=== PATIENT | male | born 1965 | race Caucasian/White ===

== ENCOUNTER 2016-09-17 08:12 | Day surgery (SDC) | payer MEDICAID ==
[~2016-09-17] VITALS: Ht 188 cm; Wt 88.0 kg
[~2016-09-17 08:12] MED LIST: IODIXANOL 320MG/ML 100ML BTL IV ONE; LIDOCAINE 2%HCL (LOCAL ANESTH.) INJ 20ML MDV ONE
[2016-09-17] MEDS ORDERED: ANGIOMAX 250 MG VIAL IV ONE (09:45)
[2016-09-17] MEDS ORDERED: VERAPAMIL 2.5MG/ML INJ 2ML VIAL IV ONE (09:46)
[2016-09-17] MEDS ORDERED: MIDAZOLAM HCL 1MG/1ML-2 ML VIAL ONE (09:46)
[2016-09-17] MEDS ORDERED: SODIUM CHL 0.9% 0 ML ONE (09:46)
[2016-09-17] MEDS ORDERED: fentaNYL CITRATE 100 MCG/2 ML VL ONE (09:46)
[2016-09-17] MEDS ORDERED: HYDROcodone-ACET 10/325MG TAB PO ONE (12:00)
[2016-10-03] MEDS ORDERED: CAR3125T OR (12:37)
[2016-10-03] MEDS ORDERED: LISI-646 PO (12:37)
[2016-10-03] MEDS ORDERED: BUPR1TAB11 PO (12:37)
[2016-10-03] MEDS ORDERED: OMEP20TA85 PO (12:37)
[2016-10-03] MEDS ORDERED: NIC21P TOP (12:37)
[2016-10-03] MEDS ORDERED: IPR002IS HHN (12:37)
[2016-10-03] MEDS ORDERED: LORA-622 PO (12:37)
[2016-10-03] MEDS ORDERED: GABA-339 PO (12:37)
[2016-10-03] MEDS ORDERED: PRE5T PO (12:37)
[2016-10-03] MEDS ORDERED: ALBU18 IN (12:37)
[2016-10-03] MEDS ORDERED: UMEC1INH IN (12:37)
[2016-10-03] MEDS ORDERED: CYCL1TAB18 PO (12:37)
== END 2016-09-17 14:25 | disposition home or self-care (01) ==
LOC: CATH 08:12
PROVIDERS: ATTEND Internal Medicine
DX: I21.4 Non-ST elevation (NSTEMI) myocardial infarction (principal)
CPT/HCPCS: 93458; C1760; C1769; C1894; J1644; J3010; J7030; 99152; J2250; Q9967

== ENCOUNTER 2016-10-02 14:39 | Inpatient (IN) | payer MEDICAID ==
[~2016-10-02] VITALS: Ht 188 cm; Wt 86.2 kg
[2016-10-02] MEDS ORDERED: IPRATROPIUM BROM 0.5 MG/2.5ML INH SOL NEB ONE (15:15)
[2016-10-02] MEDS ORDERED: methylPREDNISolone SOD SUCC 125 MG/2 ML VL IV ONE ×2 (15:15→22:15)
[2016-10-02] MEDS ORDERED: ALBUTEROL SULF 2.5 MG/0.5ML(0.5%) NEB SOLN NEB ONE (15:15)
[2016-10-02 15:18] LABS: Basophils # (auto) 0.1 uL; Basophils % (auto) 1.1 % (0.0-2.0); CONDITION Y; Eosinophils # (auto) 0.2 uL; Hematocrit 41.6 % (41.0-53.0); Hemoglobin 13.5 g/dL (13.5-17.5); Lymphocytes # (auto) 1.8 uL; Lymphocytes % (auto) 15.8 % (10.0-50.0); Mean Corpuscular Hemoglobin 29.3 pg (28.0-32.0); Mean Corpuscular Hgb Conc. 32.5 g/dL (32.0-36.0); Mean Corpuscular Volume 90.3 fL (80.0-100.0); Mean Platelet Volume 7.7 fL (7.4-10.4); Monocytes # (auto) 0.8 uL; Monocytes % (auto) 7.1 % (0.0-12.0); Neutrophils # (auto) 8.5 uL; Platelet Count (auto) 372 10^3/uL (140-450); Red Cell Distribution Width 16.3 % (11.6-16.0); White Blood Cell 11.5 10^3/uL (4.4-10.8)
[2016-10-02 15:47] LABS: BUN/Creatinine Ratio 22.3; Bilirubin, Total 0.3 mg/dL (0.2-1.0); Calcium 7.8 mg/dL (8.5-10.1); Magnesium 2.5 mg/dL (1.6-2.6); Potassium 4.2 mmol/L (3.5-5.1); Total Protein 6.6 g/dL (6.4-8.2)
[2016-10-02 15:49] LABS: B-Type Natriuretic Peptide 11.18 pg/mL (0-100)
[2016-10-02 16:03] LABS: Temperature: 23.1 C (20.0-25.0)
[2016-10-02] MEDS ORDERED: LIDOCAINE 2%HCL (LOCAL ANESTH.) INJ 20ML MDV ONE (16:23)
[2016-10-02] MEDS ORDERED: TEMAZEPAM 15 MG CAP PO PRN (18:15)
[2016-10-02] MEDS ORDERED: ONDANSETRON HCL 4 MG/2 ML VIAL IV PRN (18:15)
[2016-10-02] MEDS ORDERED: ACETAMINOPHEN 325 MG TAB PO PRN (18:15)
[2016-10-02] MEDS ORDERED: DOCUSATE SOD 100 MG CAP PO PRN (18:15)
[2016-10-02] MEDS ORDERED: NITROGLYCERIN 0.4 MG SL TAB SL PRN (18:15)
[2016-10-02] MEDS ORDERED: ONDANSETRON HCL 4 MG/2 ML VIAL IV ONE (19:30)
[2016-10-02] MEDS ORDERED: HYDROmorphone HCL 2 MG/ML VL IV ONE (19:30)
[2016-10-02 20:16] LABS: INR 0.92 (0.9-1.15); Partial Thromboplastin Time 28.5 sec (22.64-33.71)
[2016-10-02] MEDS ORDERED: ETOMIDATE (2MG/ML) 20ML VIAL IV ONE (20:30)
[2016-10-02] MEDS ORDERED: IPRATROPIUM BROM 0.5 MG/2.5ML INH SOL ONE (21:04)
[2016-10-02] MEDS ORDERED: ALBUTEROL SULF 2.5 MG/0.5ML(0.5%) NEB SOLN ONE ×2 (21:04→21:50)
[2016-10-02] MEDS ORDERED: PROPOFOL 100 ML IV ONE (21:11)
[2016-10-02] MEDS ORDERED: SUCCINYLCHOLINE CHLORIDE 20 MG/ML 10ML VIAL IV ONE (21:12)
[2016-10-02] MEDS ORDERED: cefTRIAXone 1GM/50ML D5W 50 ML IV ONE (21:30)
[2016-10-02] MEDS: PROPOFOL 100 ML IV SCH (21:37)
[2016-10-02 21:55] LABS: Allen Test Yes; Base Excess -7.5 mmol/L (-2.0-2.0); Blood 02Sat 90.4 % (96-100); Blood COHb 0.7 % (0.5-1.5); Blood MetHb 0.5 % (0.0-1.5); HCO3 24.6 mmol/L (22-26.0); HHb 9.5 % (0.0-5.0); MODE VENT - PCV; O2Hb 89.3 % (94.0-97.0); PIP 25; PO2 82.6 mmHg (80.0-100.0); PO2(T) 82.6 mmHg (80.0-100.0); Room 1010-ERT; Sample Type Arterial; pH 7.085 (7.350-7.450)
[2016-10-02 22:10] VITALS: BP 78/54
[2016-10-02] MEDS ORDERED: MIDAZOLAM DRIP 100 mg/100mL NS 100 ML IV ONE (22:39)
[2016-10-02] MEDS: MIDAZOLAM DRIP 100 mg/100mL NS 100 ML IV SCH (23:04)
[2016-10-03] VITALS (17 sets, daily range): BP systolic 90–124; BP diastolic 46–80
[2016-10-03] MEDS ORDERED: SUCCINYLCHOLINE CHLORIDE 20 MG/ML 10ML VIAL IV ONE
[2016-10-03 00:59] LABS: Allen Test Yes; Base Excess -1.2 mmol/L (-2.0-2.0); Blood 02Sat 95.6 % (96-100); Blood COHb 0.7 % (0.5-1.5); Blood MetHb 0.4 % (0.0-1.5); HCO3 27.2 mmol/L (22-26.0); HHb 4.4 % (0.0-5.0); MODE VENT - A/C; O2Hb 94.5 % (94.0-97.0); PCO2 61.7 mmHg (35.0-45.0); PCO2(T) 61.7 mmHg (35.0-45.0); Room 1010-ERT; Sample Type Arterial; pH 7.262 (7.350-7.450)
[2016-10-03] MEDS ORDERED: ALBUMIN 5% 250 ML IV ONE (02:00)
[2016-10-03 05:46] LABS: Allen Test Yes; Base Excess 0.6 mmol/L (-2.0-2.0); Blood 02Sat 89.4 % (96-100); Blood COHb 0.5 % (0.5-1.5); Blood MetHb 0.3 % (0.0-1.5); HCO3 27.3 mmol/L (22-26.0); HHb 10.5 % (0.0-5.0); MODE VENT - A/C; O2Hb 88.7 % (94.0-97.0); PCO2 51.8 mmHg (35.0-45.0); PCO2(T) 51.8 mmHg (35.0-45.0); PO2 62.2 mmHg (80.0-100.0); PO2(T) 62.2 mmHg (80.0-100.0); Room 1010-ERT; Sample Type Arterial; pH 7.339 (7.350-7.450)
[2016-10-03] MEDS: SODIUM CHLORIDE 0.9% 1,000 ML IV SCH (07:00)
[2016-10-03 09:53] LABS: Urine Bilirubin Negative (Negative); Urine Color Yellow (Yellow); Urine Glucose Normal (Normal); Urine Ketone Negative (Negative); Urine Mucus FEW (None Seen); Urine Nitrite Negative (Negative); Urine RBC 37 /hpf (0 - 3); Urine Urobilinogen Normal (Negative); Urine pH 5.5 (5.0-8.0)
[2016-10-03 09:54] LABS: Urine Blood 1+ /uL (Negative)
[2016-10-03] MEDS ORDERED: methylPREDNISolone SOD SUCC 125 MG/2 ML VL IV ONE (10:30)
[2016-10-03] MEDS: ALBUTEROL SULF 2.5 MG/0.5ML(0.5%) NEB SOLN ONE ×2 (10:39→10:49)
[2016-10-03] MEDS: IPRATROPIUM BROM 0.5 MG/2.5ML INH SOL ONE ×2 (10:39→10:48)
[2016-10-03] MEDS: IPRATROPIUM BROM 0.5 MG/2.5ML INH SOL NEB SCH ×4 (10:47→22:08)
[2016-10-03] MEDS: ALBUTEROL SULF 2.5 MG/0.5ML(0.5%) NEB SOLN NEB SCH ×4 (10:47→22:08)
[2016-10-03] MEDS: ENOXAPARIN SOD 40 MG/0.4 ML SYRINGE SC SCH (10:48)
[2016-10-03] MEDS: LEVOFLOXACIN 500MG 100 ML IV SCH (10:48)
[2016-10-03 12:04] LABS: Allen Test Modified; Base Excess 1.2 mmol/L (-2.0-2.0); Blood 02Sat 96.1 % (96-100); Blood COHb 0.3 % (0.5-1.5); Blood MetHb 0.3 % (0.0-1.5); CPAP / PEEP 0; HCO3 28.2 mmol/L (22-26.0); HHb 3.9 % (0.0-5.0); MODE VENT - A/C; O2Hb 95.5 % (94.0-97.0); PO2 95.8 mmHg (80.0-100.0); PO2(T) 95.8 mmHg (80.0-100.0); Room 1010-ERT; Sample Type Arterial; pH 7.328 (7.350-7.450)
[2016-10-03] MEDS ORDERED: NIC21P TOP ×2 (12:37)
[2016-10-03] MEDS ORDERED: UMEC1INH IN ×2 (12:37)
[2016-10-03] MEDS ORDERED: BUPR1TAB11 PO ×2 (12:37)
[2016-10-03] MEDS ORDERED: LISI-646 PO ×2 (12:37)
[2016-10-03] MEDS ORDERED: GABA-339 PO ×2 (12:37)
[2016-10-03] MEDS ORDERED: CAR3125T OR ×2 (12:37)
[2016-10-03] MEDS ORDERED: IPR002IS HHN ×2 (12:37)
[2016-10-03] MEDS ORDERED: OMEP20TA85 PO ×2 (12:37)
[2016-10-03] MEDS ORDERED: PRE5T PO ×2 (12:37)
[2016-10-03] MEDS ORDERED: LORA-622 PO ×2 (12:37)
[2016-10-03] MEDS ORDERED: CYCL1TAB18 PO ×2 (12:37)
[2016-10-03] MEDS ORDERED: ALBU18 IN ×2 (12:37)
[2016-10-03] MEDS: PROPOFOL 100 ML IV SCH (14:45)
[2016-10-03] MEDS: MIDAZOLAM DRIP 100 mg/100mL NS 100 ML IV SCH (15:34)
[2016-10-04] VITALS (106 sets, daily range): BP systolic 95–165; BP diastolic 56–123
[2016-10-04] MEDS: SODIUM CHLORIDE 0.9% 1,000 ML IV SCH ×3 (01:00→20:15)
[2016-10-04] MEDS: IPRATROPIUM BROM 0.5 MG/2.5ML INH SOL NEB SCH ×6 (01:58→22:24)
[2016-10-04] MEDS: ALBUTEROL SULF 2.5 MG/0.5ML(0.5%) NEB SOLN NEB SCH ×6 (01:58→22:24)
[2016-10-04 04:02] LABS: Basophils # (auto) 0.2 uL; CONDITION Y; Eosinophils # (auto) 0.1 uL; Eosinophils % (auto) 0.4 % (0.0-7.0); Hemoglobin 12.4 g/dL (13.5-17.5); Lymphocytes # (auto) 0.9 uL; Lymphocytes % (auto) 5.6 % (10.0-50.0); Mean Corpuscular Hemoglobin 29.9 pg (28.0-32.0); Mean Corpuscular Hgb Conc. 32.5 g/dL (32.0-36.0); Mean Corpuscular Volume 91.8 fL (80.0-100.0); Mean Platelet Volume 8.2 fL (7.4-10.4); Monocytes # (auto) 1.3 uL; Platelet Count (auto) 252 10^3/uL (140-450); Red Cell Distribution Width 16.5 % (11.6-16.0); White Blood Cell 16.5 10^3/uL (4.4-10.8)
[2016-10-04 04:19] LABS: BUN/Creatinine Ratio 34.1; Calcium 7.9 mg/dL (8.5-10.1); Magnesium 2.7 mg/dL (1.6-2.6); Potassium 4.5 mmol/L (3.5-5.1)
[2016-10-04 07:37] LABS: Allen Test Yes; Base Excess 2.6 mmol/L (-2.0-2.0); Blood COHb 0.7 % (0.5-1.5); Blood MetHb 0.2 % (0.0-1.5); CPAP / PEEP 0; HCO3 28.5 mmol/L (22-26.0); MODE VENT - A/C; O2Hb 94.1 % (94.0-97.0); PCO2 48.9 mmHg (35.0-45.0); PCO2(T) 48.9 mmHg (35.0-45.0); PIP 19; PO2 82.1 mmHg (80.0-100.0); PO2(T) 82.1 mmHg (80.0-100.0); Sample Type Arterial; pH 7.383 (7.350-7.450)
[2016-10-04] MEDS: LEVOFLOXACIN 500MG 100 ML IV SCH (09:44)
[2016-10-04] MEDS: methylPREDNISolone SOD SUCC 125 MG/2 ML VL IV SCH (09:45)
[2016-10-04] MEDS: ENOXAPARIN SOD 40 MG/0.4 ML SYRINGE SC SCH (09:45)
[2016-10-04] MEDS: HYDROmorphone HCL 2 MG/ML VL IV PRN (10:52)
[2016-10-04 12:41] LABS: Allen Test Yes; Blood 02Sat 87.4 % (96-100); Blood COHb 0.8 % (0.5-1.5); Blood MetHb 0.2 % (0.0-1.5); CPAP / PEEP 0; HCO3 31.2 mmol/L (22-26.0); HHb 12.5 % (0.0-5.0); MODE VENT - A/C; O2Hb 86.5 % (94.0-97.0); PCO2 65.7 mmHg (35.0-45.0); PCO2(T) 65.7 mmHg (35.0-45.0); PO2 60.1 mmHg (80.0-100.0); PO2(T) 60.1 mmHg (80.0-100.0); Pressure Support 8; Sample Type Arterial; Spont Vt 555; pH 7.295 (7.350-7.450)
[2016-10-04] MEDS ORDERED: Nutren Pulmonary 1 Liter GT SCH (17:00)
[2016-10-04] MEDS: MIDAZOLAM DRIP 100 mg/100mL NS 100 ML IV SCH (22:38)
[2016-10-04] MEDS: PROPOFOL 100 ML IV SCH (23:15)
[2016-10-05] VITALS (109 sets, daily range): BP systolic 114–174; BP diastolic 67–119
[2016-10-05] MEDS: PROPOFOL 100 ML IV SCH ×3 (01:45→21:45)
[2016-10-05] MEDS: IPRATROPIUM BROM 0.5 MG/2.5ML INH SOL NEB SCH ×6 (02:22→22:28)
[2016-10-05] MEDS: ALBUTEROL SULF 2.5 MG/0.5ML(0.5%) NEB SOLN NEB SCH ×6 (02:22→22:28)
[2016-10-05] MEDS: HYDROmorphone HCL 2 MG/ML VL IV PRN ×4 (04:45→23:05)
[2016-10-05] MEDS: SODIUM CHLORIDE 0.9% 1,000 ML IV SCH ×3 (06:15→23:08)
[2016-10-05 06:54] LABS: Allen Test Modified; Base Excess 2.8 mmol/L (-2.0-2.0); Blood COHb 0.5 % (0.5-1.5); Blood MetHb 0.1 % (0.0-1.5); CPAP / PEEP 0; HCO3 28.8 mmol/L (22-26.0); MODE VENT - A/C; O2Hb 95.4 % (94.0-97.0); PCO2 50.3 mmHg (35.0-45.0); PCO2(T) 50.3 mmHg (35.0-45.0); Sample Type Arterial; pH 7.376 (7.350-7.450)
[2016-10-05] MEDS: methylPREDNISolone SOD SUCC 125 MG/2 ML VL IV SCH (10:01)
[2016-10-05] MEDS: LEVOFLOXACIN 500MG 100 ML IV SCH (10:01)
[2016-10-05] MEDS: ENOXAPARIN SOD 40 MG/0.4 ML SYRINGE SC SCH (10:01)
[2016-10-05 10:36] LABS: Basophils # (auto) 0.1 uL; Basophils % (auto) 1.2 % (0.0-2.0); CONDITION Y; Eosinophils # (auto) 0.1 uL; Eosinophils % (auto) 0.4 % (0.0-7.0); Hematocrit 37.9 % (41.0-53.0); Hemoglobin 12.3 g/dL (13.5-17.5); Lymphocytes # (auto) 1.7 uL; Lymphocytes % (auto) 13.6 % (10.0-50.0); Mean Corpuscular Hemoglobin 29.4 pg (28.0-32.0); Mean Corpuscular Hgb Conc. 32.6 g/dL (32.0-36.0); Mean Corpuscular Volume 90.3 fL (80.0-100.0); Mean Platelet Volume 7.8 fL (7.4-10.4); Monocytes # (auto) 1.6 uL; Monocytes % (auto) 12.7 % (0.0-12.0); Neutrophils # (auto) 8.8 uL; Neutrophils % (auto) 72.1 % (37.0-80.0); Platelet Count (auto) 278 10^3/uL (140-450); Red Cell Distribution Width 16.8 % (11.6-16.0); White Blood Cell 12.2 10^3/uL (4.4-10.8)
[2016-10-05 10:50] LABS: Albumin 2.9 g/dL (3.4-5.0); BUN/Creatinine Ratio 43.5; Bilirubin, Total 0.6 mg/dL (0.2-1.0); Calcium 8.1 mg/dL (8.5-10.1); Potassium 3.8 mmol/L (3.5-5.1); Total Protein 6.1 g/dL (6.4-8.2)
[2016-10-05] MEDS: MUPIROCIN 2% OINT 22GM EACHNOSTRI SCH (21:35)
[2016-10-05] MEDS: ALPRAZolam 0.25 MG TAB PO SCH (21:35)
[2016-10-05] MEDS: MIDAZOLAM DRIP 100 mg/100mL NS 100 ML IV SCH (22:38)
[2016-10-06] VITALS (98 sets, daily range): BP systolic 117–170; BP diastolic 66–124
[2016-10-06] MEDS: PROPOFOL 100 ML IV SCH ×3 (02:25→17:33)
[2016-10-06 04:22] LABS: Basophils # (auto) 0.2 uL; Basophils % (auto) 1.4 % (0.0-2.0); CONDITION Y; Eosinophils # (auto) 0 uL; Eosinophils % (auto) 0.3 % (0.0-7.0); Hematocrit 38.1 % (41.0-53.0); Hemoglobin 12.6 g/dL (13.5-17.5); Lymphocytes # (auto) 1.5 uL; Lymphocytes % (auto) 13.8 % (10.0-50.0); Mean Corpuscular Hemoglobin 29.7 pg (28.0-32.0); Mean Corpuscular Hgb Conc. 33.1 g/dL (32.0-36.0); Mean Corpuscular Volume 89.7 fL (80.0-100.0); Mean Platelet Volume 8.3 fL (7.4-10.4); Monocytes # (auto) 1.2 uL; Neutrophils # (auto) 8.1 uL; Neutrophils % (auto) 73.5 % (37.0-80.0); Platelet Count (auto) 250 10^3/uL (140-450); Red Cell Distribution Width 16.3 % (11.6-16.0)
[2016-10-06 04:49] LABS: BUN/Creatinine Ratio 37.5; Calcium 7.9 mg/dL (8.5-10.1); Potassium 3.8 mmol/L (3.5-5.1)
[2016-10-06] MEDS: ALBUTEROL SULF 2.5 MG/0.5ML(0.5%) NEB SOLN NEB SCH ×4 (05:38→18:02)
[2016-10-06] MEDS: IPRATROPIUM BROM 0.5 MG/2.5ML INH SOL NEB SCH ×4 (05:38→18:01)
[2016-10-06] MEDS: HYDROmorphone HCL 2 MG/ML VL IV PRN (05:54)
[2016-10-06] MEDS: MUPIROCIN 2% OINT 22GM EACHNOSTRI SCH ×2 (10:10→21:17)
[2016-10-06] MEDS: LEVOFLOXACIN 500MG 100 ML IV SCH (10:23)
[2016-10-06] MEDS: ALPRAZolam 0.25 MG TAB PO SCH ×2 (10:24→21:18)
[2016-10-06] MEDS: ENOXAPARIN SOD 40 MG/0.4 ML SYRINGE SC SCH (10:24)
[2016-10-06] MEDS: methylPREDNISolone SOD SUCC 125 MG/2 ML VL IV SCH (10:34)
[2016-10-06] MEDS: MORPHINE SULF INJ 2 MG/ML SYRINGE 1ML IV PRN ×2 (14:24→19:58)
[2016-10-06 16:02] LABS: Allen Test Yes; Base Excess 6.4 mmol/L (-2.0-2.0); Blood 02Sat 94.8 % (96-100); Blood COHb 0.2 % (0.5-1.5); Blood MetHb 0.2 % (0.0-1.5); CPAP / PEEP 0; HCO3 31.8 mmol/L (22-26.0); HHb 5.2 % (0.0-5.0); MODE VENT - CPAP; O2Hb 94.4 % (94.0-97.0); PCO2 48.7 mmHg (35.0-45.0); PCO2(T) 48.7 mmHg (35.0-45.0); PIP 18; Sample Type Arterial; Spont Vt 675; pH 7.433 (7.350-7.450)
[2016-10-06] MEDS ORDERED: METOPROLOL TARTRATE 50 MG TAB PO ONE (17:00)
[2016-10-06] MEDS: METOPROLOL TARTRATE 25 MG TAB PO SCH (21:17)
[2016-10-06] MEDS: MIDAZOLAM DRIP 100 mg/100mL NS 100 ML IV SCH (22:38)
[2016-10-07] VITALS (46 sets, daily range): BP systolic 124–165; BP diastolic 78–100
[2016-10-07] MEDS: ALBUTEROL SULF 2.5 MG/0.5ML(0.5%) NEB SOLN NEB SCH ×6 (02:10→22:30)
[2016-10-07] MEDS: IPRATROPIUM BROM 0.5 MG/2.5ML INH SOL NEB SCH ×6 (02:10→22:30)
[2016-10-07 04:12] LABS: Basophils # (auto) 0.1 uL; Basophils % (auto) 0.7 % (0.0-2.0); CONDITION Y; Eosinophils # (auto) 0.1 uL; Eosinophils % (auto) 0.8 % (0.0-7.0); Hematocrit 42.9 % (41.0-53.0); Hemoglobin 13.9 g/dL (13.5-17.5); Mean Corpuscular Hemoglobin 29.6 pg (28.0-32.0); Mean Corpuscular Hgb Conc. 32.5 g/dL (32.0-36.0); Mean Platelet Volume 8.5 fL (7.4-10.4); Monocytes # (auto) 1.2 uL; Monocytes % (auto) 10.4 % (0.0-12.0); Neutrophils # (auto) 8.5 uL; Neutrophils % (auto) 71.1 % (37.0-80.0); Platelet Count (auto) 264 10^3/uL (140-450); Red Cell Distribution Width 16.1 % (11.6-16.0); White Blood Cell 11.9 10^3/uL (4.4-10.8)
[2016-10-07 04:25] LABS: Calcium 8.2 mg/dL (8.5-10.1); Potassium 3.9 mmol/L (3.5-5.1)
[2016-10-07 04:27] LABS: BUN/Creatinine Ratio 33.9
[2016-10-07] MEDS: MORPHINE SULF INJ 2 MG/ML SYRINGE 1ML IV PRN ×2 (06:00→23:22)
[2016-10-07] MEDS: METOPROLOL TARTRATE 25 MG TAB PO SCH ×2 (10:11→21:06)
[2016-10-07] MEDS: MUPIROCIN 2% OINT 22GM EACHNOSTRI SCH ×2 (10:11→21:06)
[2016-10-07] MEDS: methylPREDNISolone SOD SUCC 40 MG/ML VL IV SCH (10:11)
[2016-10-07] MEDS: ALPRAZolam 0.25 MG TAB PO SCH ×2 (10:11→21:07)
[2016-10-07] MEDS: LEVOFLOXACIN 500MG 100 ML IV SCH (10:11)
[2016-10-07] MEDS: ENOXAPARIN SOD 40 MG/0.4 ML SYRINGE SC SCH (10:11)
[2016-10-07] MEDS: GABAPENTIN 300 MG CAP PO SCH ×2 (14:00→21:07)
[2016-10-07] MEDS: PANTOPRAZOLE 40 MG TAB PO SCH (15:22)
[2016-10-07] MEDS: HYDROcodone-ACET 5/325MG TAB PO PRN (15:23)
[2016-10-07] MEDS: MIDAZOLAM DRIP 100 mg/100mL NS 100 ML IV SCH (22:38)
[2016-10-07] MEDS: PROPOFOL 100 ML IV SCH (23:48)
[2016-10-08] VITALS (42 sets, daily range): BP systolic 71–153; BP diastolic 38–97
[2016-10-08] MEDS: ALBUTEROL SULF 2.5 MG/0.5ML(0.5%) NEB SOLN NEB SCH ×5 (02:20→22:30)
[2016-10-08] MEDS: IPRATROPIUM BROM 0.5 MG/2.5ML INH SOL NEB SCH ×6 (02:20→22:30)
[2016-10-08] MEDS: GABAPENTIN 300 MG CAP PO SCH ×3 (06:00→21:12)
[2016-10-08] MEDS: HYDROmorphone HCL 2 MG/ML VL IV PRN ×2 (07:37→11:15)
[2016-10-08] MEDS: MUPIROCIN 2% OINT 22GM EACHNOSTRI SCH ×2 (10:23→21:12)
[2016-10-08] MEDS: METOPROLOL TARTRATE 25 MG TAB PO SCH ×2 (10:24→21:12)
[2016-10-08] MEDS: ALPRAZolam 0.25 MG TAB PO SCH ×2 (10:24→21:12)
[2016-10-08] MEDS: PANTOPRAZOLE 40 MG TAB PO SCH (10:24)
[2016-10-08] MEDS: methylPREDNISolone SOD SUCC 40 MG/ML VL IV SCH (10:24)
[2016-10-08] MEDS: LEVOFLOXACIN 500MG 100 ML IV SCH (10:24)
[2016-10-08] MEDS: ENOXAPARIN SOD 40 MG/0.4 ML SYRINGE SC SCH (10:25)
[2016-10-08] MEDS: HYDROcodone-ACET 5/325MG TAB PO PRN (21:23)
[2016-10-08] MEDS: MIDAZOLAM DRIP 100 mg/100mL NS 100 ML IV SCH (22:38)
[2016-10-08] MEDS: PROPOFOL 100 ML IV SCH (23:00)
[2016-10-09] VITALS: BP 122/82
[2016-10-09] MEDS: IPRATROPIUM BROM 0.5 MG/2.5ML INH SOL NEB SCH ×6 (02:38→22:19)
[2016-10-09 04:57] VITALS: BP 111/68
[2016-10-09] MEDS: GABAPENTIN 300 MG CAP PO SCH ×3 (06:00→22:00)
[2016-10-09] MEDS: ALBUTEROL SULF 2.5 MG/0.5ML(0.5%) NEB SOLN NEB SCH ×3 (06:38→22:19)
[2016-10-09 09:00] VITALS: BP 104/68
[2016-10-09] MEDS: methylPREDNISolone SOD SUCC 40 MG/ML VL IV SCH (09:31)
[2016-10-09] MEDS: ENOXAPARIN SOD 40 MG/0.4 ML SYRINGE SC SCH (09:31)
[2016-10-09] MEDS: LEVOFLOXACIN 500MG 100 ML IV SCH (09:32)
[2016-10-09] MEDS: METOPROLOL TARTRATE 25 MG TAB PO SCH ×2 (09:32→22:00)
[2016-10-09] MEDS: ALPRAZolam 0.25 MG TAB PO SCH ×2 (09:32→22:00)
[2016-10-09] MEDS: PANTOPRAZOLE 40 MG TAB PO SCH (09:32)
[2016-10-09] MEDS: MUPIROCIN 2% OINT 22GM EACHNOSTRI SCH ×2 (09:33→22:00)
[2016-10-09 13:00] VITALS: BP 119/66
[2016-10-09] MEDS ORDERED: MORPHINE SULFATE 4 MG/ML SYRG IV PRN (14:31)
[2016-10-09 16:54] VITALS: BP 128/80
[2016-10-09] MEDS: FUROSEMIDE 20 MG TAB PO SCH (18:48)
[2016-10-09] MEDS: POTASSIUM CHLORIDE 8 MEQ TAB PO SCH (22:00)
[2016-10-09 22:55] VITALS: BP 112/61
[2016-10-10 05:41] VITALS: BP 117/67
[2016-10-10 05:59] LABS: Basophils # (auto) 0.1 uL; Basophils % (auto) 0.4 % (0.0-2.0); CONDITION Y; DEFINITIVE SEE PRINTOUT; Eosinophils # (auto) 0.2 uL; Eosinophils % (auto) 1.2 % (0.0-7.0); Hematocrit 39.9 % (41.0-53.0); Hemoglobin 12.7 g/dL (13.5-17.5); Lymphocytes # (auto) 2.4 uL; Lymphocytes % (auto) 15.2 % (10.0-50.0); Mean Corpuscular Hemoglobin 29.2 pg (28.0-32.0); Mean Corpuscular Hgb Conc. 31.8 g/dL (32.0-36.0); Mean Corpuscular Volume 91.7 fL (80.0-100.0); Monocytes # (auto) 1.8 uL; Monocytes % (auto) 11.6 % (0.0-12.0); Neutrophils # (auto) 11.1 uL; Neutrophils % (auto) 71.6 % (37.0-80.0); Platelet Count (auto) 250 10^3/uL (140-450); Red Cell Distribution Width 15.4 % (11.6-16.0); White Blood Cell 15.5 10^3/uL (4.4-10.8)
[2016-10-10 06:14] LABS: Calcium 8.5 mg/dL (8.5-10.1); Potassium 3.9 mmol/L (3.5-5.1)
[2016-10-10 06:19] LABS: BUN/Creatinine Ratio 37.2
[2016-10-10] MEDS: FUROSEMIDE 20 MG TAB PO SCH (06:43)
[2016-10-10] MEDS: GABAPENTIN 300 MG CAP PO SCH (06:44)
[2016-10-10] MEDS: IPRATROPIUM BROM 0.5 MG/2.5ML INH SOL NEB SCH ×2 (07:00→11:30)
[2016-10-10] MEDS: ALBUTEROL SULF 2.5 MG/0.5ML(0.5%) NEB SOLN NEB SCH (07:00)
[2016-10-10] MEDS: ALPRAZolam 0.25 MG TAB PO SCH (10:57)
[2016-10-10] MEDS: PANTOPRAZOLE 40 MG TAB PO SCH (10:57)
[2016-10-10] MEDS: POTASSIUM CHLORIDE 8 MEQ TAB PO SCH (10:57)
[2016-10-10] MEDS: MUPIROCIN 2% OINT 22GM EACHNOSTRI SCH (10:58)
[2016-10-10] MEDS: LEVOFLOXACIN 500MG 100 ML IV SCH (10:58)
[2016-10-10] MEDS: METOPROLOL TARTRATE 25 MG TAB PO SCH (10:58)
[2016-10-10] MEDS: ENOXAPARIN SOD 40 MG/0.4 ML SYRINGE SC SCH (10:58)
[2016-10-10] MEDS: methylPREDNISolone SOD SUCC 40 MG/ML VL IV SCH (10:59)
[2016-10-10] MEDS: HYDROcodone-ACET 5/325MG TAB PO PRN (11:09)
[2016-10-10 12:15] VITALS: BP 93/62
[2016-10-10 13:28] VITALS: BP 127/78
[2016-10-10] MEDS ORDERED: GABAPENTIN 300 MG CAP PO SCH (22:00)
[2016-10-11] MEDS ORDERED: ENOXAPARIN SOD 40 MG/0.4 ML SYRINGE SC SCH (10:00)
== END 2016-10-10 14:35 | disposition home health service (06) | DRG 133 ==
LOC: EDBD 14:39 → ER 14:39 → TELE 14:40 → ICU WEST 10-03 22:51 → TELE-EAST 10-08 23:44
PROVIDERS: ADMIT Internal Medicine; ATTEND Hospitalist
PROC: 5A1945Z Respiratory Ventilation, 24-96 Consecutive Hours (ICD-10-PCS; principal; 2016-10-02)
PROC: 0BH17EZ Insertion of Endotracheal Airway into Trachea, Via Natural or Artificial Opening (ICD-10-PCS; 2016-10-02)
PROC: 0W9B30Z Drainage of Left Pleural Cavity with Drainage Device, Percutaneous Approach (ICD-10-PCS; 2016-10-02)
DX: J96.01 Acute respiratory failure with hypoxia (principal); J15.0 Pneumonia due to Klebsiella pneumoniae; J44.0 Chronic obstructive pulmonary disease with (acute) lower respiratory infection; J44.9 Chronic obstructive pulmonary disease, unspecified; J93.83 Other pneumothorax; J98.01 Acute bronchospasm; F15.10 Other stimulant abuse, uncomplicated; F41.9 Anxiety disorder, unspecified; F17.210 Nicotine dependence, cigarettes, uncomplicated; Z71.89 Other specified counseling; D72.829 Elevated white blood cell count, unspecified
CPT/HCPCS: 36415; 36600; 51702; 70450; 71010; 71020; 71250; 80048; 80053; 80307; 81001; 82805; 82962; 83735; 83880; 84443; 84484; 85025; 85610; 85730; 87070; 87077; 87081; 87086; 87186; 87205; 93005; 94002; 94003; 94640; 96374; A4565; J0330; J0696; J1956; J2405; J2704

== ENCOUNTER 2016-10-12 17:16 | Inpatient (IN) | payer MEDICAID ==
[~2016-10-12] VITALS: Ht 188 cm; Wt 68.0 kg
[~2016-10-12 17:16] MED LIST changes: +ALBU18 IN; +BUPR1TAB11 PO; +CAR3125T OR; +CYCL1TAB18 PO; +GABA-339 PO; -IODIXANOL 320MG/ML 100ML BTL IV ONE; +IPR002IS HHN; -LIDOCAINE 2%HCL (LOCAL ANESTH.) INJ 20ML MDV ONE; +LISI-646 PO; +LORA-622 PO; +NIC21P TOP; +OMEP20TA85 PO; +PRE5T PO; +UMEC1INH IN
[2016-10-12 18:46] LABS: Basophils # (auto) 0 uL; Basophils % (auto) 0.4 % (0.0-2.0); CONDITION Y; Eosinophils # (auto) 0.2 uL; Eosinophils % (auto) 1.1 % (0.0-7.0); Hematocrit 37.1 % (41.0-53.0); Hemoglobin 12.1 g/dL (13.5-17.5); Lymphocytes # (auto) 1.9 uL; Lymphocytes % (auto) 13.9 % (10.0-50.0); Mean Corpuscular Hemoglobin 29.6 pg (28.0-32.0); Mean Corpuscular Hgb Conc. 32.7 g/dL (32.0-36.0); Mean Corpuscular Volume 90.7 fL (80.0-100.0); Mean Platelet Volume 8.2 fL (7.4-10.4); Monocytes # (auto) 1.5 uL; Monocytes % (auto) 10.9 % (0.0-12.0); Neutrophils # (auto) 10.3 uL; Neutrophils % (auto) 73.7 % (37.0-80.0); Platelet Count (auto) 267 10^3/uL (140-450); White Blood Cell 13.9 10^3/uL (4.4-10.8)
[2016-10-12] MEDS ORDERED: SODIUM CHLORIDE 0.9% 1,000 ML IV ONE (18:46)
[2016-10-12 19:02] LABS: Albumin 2.6 g/dL (3.4-5.0); BUN/Creatinine Ratio 26.9; Bilirubin, Total 0.2 mg/dL (0.2-1.0); Potassium 4.7 mmol/L (3.5-5.1); Total Protein 5.9 g/dL (6.4-8.2)
[2016-10-12 19:03] LABS: INR 0.88 (0.9-1.15); Partial Thromboplastin Time 24.8 sec (22.64-33.71); Prothrombin Time 9.6 sec (9.37-12.3)
[2016-10-12 19:06] LABS: B-Type Natriuretic Peptide 14.46 pg/mL (0-100)
[2016-10-12 20:01] LABS: Urine RBC None Seen /hpf (0 - 3)
[2016-10-12] MEDS ORDERED: IOHEXOL 350 MG/ML 100ML IJ ONE (20:06)
[2016-10-12 20:14] LABS: Urine Bilirubin Negative (Negative); Urine Blood Negative /uL (Negative); Urine Color Yellow (Yellow); Urine Glucose Normal (Normal); Urine Ketone Negative (Negative); Urine Nitrite Negative (Negative); Urine Urobilinogen Normal (Negative); Urine pH 7.5 (5.0-8.0)
[2016-10-12] MEDS ORDERED: MORPHINE SULFATE 4 MG/ML SYRG IV ONE (20:45)
[2016-10-12] MEDS ORDERED: ONDANSETRON HCL 4 MG/2 ML VIAL IV ONE (20:45)
[2016-10-12] MEDS ORDERED: TEMAZEPAM 15 MG CAP PO PRN (22:30)
[2016-10-12] MEDS ORDERED: ONDANSETRON HCL 4 MG/2 ML VIAL IV PRN (22:30)
[2016-10-12] MEDS ORDERED: LACTULOSE 20Gm/30ML SOLN PO PRN (22:30)
[2016-10-12] MEDS ORDERED: ACETAMINOPHEN 500 MG TAB PO PRN (22:30)
[2016-10-12] MEDS ORDERED: NITROGLYCERIN 0.4 MG SL TAB SL PRN (22:30)
[2016-10-12] MEDS ORDERED: MORPHINE SULFATE 4 MG/ML SYRG IV PRN ×2 (22:30)
[2016-10-12] MEDS ORDERED: LORazepam 0.5 MG TAB PO PRN (22:30)
[2016-10-12] MEDS ORDERED: HYDROcodone-ACET 5/325MG TAB PO PRN (22:30)
[2016-10-12] MEDS ORDERED: SODIUM CHLORIDE 0.9% 1,000 ML IV SCH (22:45)
[2016-10-12] MEDS ORDERED: LEVOFLOXACIN 500MG 100 ML IV SCH (23:00)
[2016-10-13 01:30] VITALS: BP 109/59
[2016-10-13] MEDS: LACTULOSE 20Gm/30ML SOLN PO SCH ×3 (01:48→10:43)
[2016-10-13 05:00] VITALS: BP 112/67
[2016-10-13 06:20] LABS: Basophils # (auto) 0.1 uL; Basophils % (auto) 0.6 % (0.0-2.0); CONDITION Y; Eosinophils # (auto) 0.2 uL; Eosinophils % (auto) 1.8 % (0.0-7.0); Hematocrit 36.8 % (41.0-53.0); Lymphocytes # (auto) 2.1 uL; Lymphocytes % (auto) 17.8 % (10.0-50.0); Mean Corpuscular Hemoglobin 29.7 pg (28.0-32.0); Mean Corpuscular Hgb Conc. 32.7 g/dL (32.0-36.0); Mean Corpuscular Volume 91.1 fL (80.0-100.0); Mean Platelet Volume 8.4 fL (7.4-10.4); Monocytes # (auto) 1.1 uL; Monocytes % (auto) 9.8 % (0.0-12.0); Neutrophils # (auto) 8.1 uL; Platelet Count (auto) 243 10^3/uL (140-450); Red Cell Distribution Width 15.8 % (11.6-16.0); White Blood Cell 11.6 10^3/uL (4.4-10.8)
[2016-10-13 06:42] LABS: BUN/Creatinine Ratio 23.4; Calcium 7.9 mg/dL (8.5-10.1); INR 0.88 (0.9-1.15); Partial Thromboplastin Time 24.4 sec (22.64-33.71); Potassium 4.5 mmol/L (3.5-5.1); Prothrombin Time 9.6 sec (9.37-12.3)
[2016-10-13 09:06] VITALS: BP 121/45
[2016-10-13] MEDS ORDERED: CARVEDILOL 3.125 MG TAB PO SCH (10:00)
[2016-10-13] MEDS ORDERED: predniSONE 5 MG TAB PO SCH (10:00)
[2016-10-13] MEDS ORDERED: buPROPion HCL 75 MG TAB PO SCH (10:00)
[2016-10-13] MEDS ORDERED: LISINOPRIL 10 MG TAB PO SCH (10:00)
[2016-10-13 12:30] VITALS: BP 145/79
== END 2016-10-13 11:40 | disposition left against medical advice (07) | DRG 144 ==
LOC: EDBD 17:16 → ER 17:22 → TELE 17:23 → TELE-EAST 10-13 00:20
PROVIDERS: ADMIT Internal Medicine; ATTEND Internal Medicine
DX: R04.2 Hemoptysis (principal); I10 Essential (primary) hypertension; F32.9 Major depressive disorder, single episode, unspecified; J44.9 Chronic obstructive pulmonary disease, unspecified; G89.29 Other chronic pain; M54.5 Low back pain; F17.200 Nicotine dependence, unspecified, uncomplicated; D72.829 Elevated white blood cell count, unspecified; D64.9 Anemia, unspecified; K59.00 Constipation, unspecified; K21.9 Gastro-esophageal reflux disease without esophagitis; Z79.899 Other long term (current) drug therapy; Z90.49 Acquired absence of other specified parts of digestive tract
CPT/HCPCS: 36415; 71010; 71275; 80048; 80053; 81001; 83605; 83735; 83880; 84484; 85025; 85379; 85610; 85730; 87040; 87070; 87081; 87205; 94761; 96361; 96374; 96375; J1956; J2405